=== PATIENT | male | born 2000 ===

== ENCOUNTER 2023-12-30 01:23 | Observation (INO) | payer BC, SELFPAY ==
[2023-12-30] VITALS (20 sets, daily range): BP systolic 123–164; BP diastolic 69–92; PULSE 59–100; RESP 14–18; TEMP 36.5–37.2; O2SAT 93–100; BMI 27.6
--- NOTE | 2023-12-30 02:14 | CTR_ITS ---
PROCEDURE INFORMATION: Exam: CT Abdomen And Pelvis Without Contrast Exam date and time: 12/30/2023 2:29 AM Age: 23 years old Clinical indication: Abdominal pain; Right; Prior surgery; Surgery date: 6+ months; Surgery type: Pediatric surgery on left kidney. Patient unable to specify what type of surgery. Patient HX: C/O RT flank pain. ; Additional info: R flank pain TECHNIQUE: Imaging protocol: Computed tomography of the abdomen and pelvis without contrast. Radiation optimization: All CT scans at this facility use at least one of these dose optimization techniques: automated exposure control; mA and/or kV adjustment per patient size (includes targeted exams where dose is matched to clinical indication); or iterative reconstruction. COMPARISON: No relevant prior studies available. RADIATION DOSE METRICS: Total DLP (mGy-cm): 570.69 FINDINGS: Liver: Normal. No mass. Gallbladder and bile ducts: The gallbladder is partially distended. Pancreas: Normal. No ductal dilation. Spleen: Normal. No splenomegaly. Adrenal glands: Normal. No mass. Kidneys and ureters: There is left renal atrophy and scarring. The right kidney is normal in size and contour without hydronephrosis or nephrolithiasis. Stomach and bowel: There is no evidence for small bowel obstruction. Stool scattered throughout the colon. Appendix: The appendix is somewhat dilated with surrounding periappendiceal inflammatory change and a 9 mm appendicolith near its base. Intraperitoneal space: Unremarkable. No free air. No significant fluid collection. Vasculature: Unremarkable. No abdominal aortic aneurysm. Lymph nodes: Shotty subcentimeter mesenteric lymphadenopathy is noted. Urinary bladder: Urinary bladder is relatively contracted. Reproductive: Unremarkable as visualized. Bones/joints: Unremarkable. No acute fracture. Soft tissues: Unremarkable. Other findings: Noncontrast technique limits assessment. CT/CT kidney stone [id number] IMPRESSION: Acute appendicitis. No evidence of perforation or drainable fluid collection.
[2023-12-30 02:31] LABS: Basophils % 0.4 %; Eosinophils # 0.1 10^3/uL (0.0-0.8); Eosinophils % 1.1 %; Hematocrit 41.6 % (37-53); Lymphocytes # 2.2 10^3/uL (0.8-4.8); Lymphocytes % 21.2 %; Mean Corpuscular HGB Conc 34.9 g/dL (30-55); Mean Corpuscular Hemoglobin 30.7 pg (27-33); Mean Corpuscular Volume 88.1 fl (82-101); Mean Platelet Volume 10.1 fL (7.4-10.4); Monocytes % 9.4 %; Neutrophils # 6.97 10^3/uL (1.8-7.7); Neutrophils % 67.7 %; Nucleated Red Blood Cells % 0 %; Platelet Count 239 10^3/cmm (157-399); Red Blood Count 4.72 10^6/uL (3.85-5.65); Red Cell Distribution Width 12.2 % (12.1-15.1); White Blood Count 10.29 10^3/uL (3.29-11.43)
[2023-12-30] MEDS: ketorolac 30 mg/mL INJ IVP (02:36)
[2023-12-30] MEDS: morphine 4 mg/mL SDV 1 mL IVP ×2 (02:36→13:21)
[2023-12-30] MEDS: ondansetron 2 mg/ML SDV 2 mL 4 MG IVP (02:37)
[2023-12-30 02:49] LABS: Alanine Aminotransferase 19 U/L (0-41); Albumin Level 4.8 g/dL (3.5-5.2); Alkaline Phosphatase 62 U/L (40-130); Anion Gap 15.9 (5-19); Aspartate Amino Transferase 21 U/L (0-40); Blood Urea Nitrogen 15 mg/dL (6-20); Calcium 9.3 mg/dL (8.5-10.5); Carbon Dioxide 27 mmol/L (22-29); Chloride 100 mmol/L (98-107); Creatinine Clr Calc Pharmacy 130.4857; Glucose 97 mg/dL (65-115); Lipase 22 U/L (13-60); Osmolality Calculated 289 mOsm/kg (285-295); Potassium 3.9 mmol/L (3.5-5.1); Sodium 139 mmol/L (136-145); Total Bilirubin 0.8 mg/dL (0.15-1.2); Total Protein 7.8 g/dL (6.6-8.7)
[2023-12-30 02:56] LABS: Add Urine Microscopic? NO; Bilirubin Urine Neg (Negative); Blood Urine Neg (Negative); Charge for UA Resulting for Rev; Glucose Urine UA Norm (Normal); Ketones Urine Negative (Negative); Leukocyte Esterase Urine Negative (Negative); Nitrate Urine Negative (Negative); Protein Urine Neg (Negative); Specific Gravity, Urine 1.015 (1.005-1.030); Urine Appearance Clear (CLEAR); Urine Color Yellow (Yellow); Urobilinogen Urine Neg (Negative); pH Urine 5 (5-7)
--- NOTE | 2023-12-30 03:24 | ED_ITS ---
HPI - Abdominal Pain 2 General: Chief Complaint: Abdominal Pain Stated Complaint: Left side pain Time Seen by Provider: 12/30/23 01:57 History of Present Illness: Healthy 23-year-old male with right-sided abdominal pain since around 230 yesterday afternoon. Pain is situated to the right mid abdomen. Pain is worse with movement. He has not been overly nauseated or throwing up. No fever. No diarrhea. No history of abdominal surgery Associated Symptoms: Reports nausea; Denies constipation, diarrhea, fever(s), hematochezia and vomiting Review of Systems 2 Const: Denies: fever(s) ENMT: Denies: throat pain Card: Denies: chest pain Resp: Denies: dyspnea, productive cough or non-productive cough GI: Reports: abdominal pain and nausea; Denies: vomiting, diarrhea, constipation or hematochezia Physical Exam 2 Const: COMMON NORMALS: no acute distress GENERAL APPEARANCE: cooperative; not ill appearing and not frail appearing HENMT: COMMON NORMALS: normocephalic, atraumatic and Normal external nose present HEAD & SCALP: normocephalic and atraumatic FACE & SINUS: normal facial exam and face symmetric NOSE: Normal external nose present Eye: COMMON NORMALS: Equal, round and reactive pupils present and EOMs intact bilaterally PUPIL: Yes Equal, round and reactive pupils present Neck/C-Spine: GENERAL: Yes trachea midline Chest: CHEST: Yes Symmetrical chest wall rise Resp: COMMON NORMALS: normal respiratory effort, No retractions, No use of accessory muscles and clear to auscultation bilaterally AUSCULTATION: clear to auscultation bilaterally Cardio: COMMON NORMALS: regular rate and regular rhythm RATE: regular rate RHYTHM: regular rhythm GI: COMMON NORMALS: Soft to palpation PALPATION: Yes Soft to palpation and Yes Tenderness to palpation present (GI) (Right mid abdomen) : TESTES: Yes testicular lie normal Extremity: COMMON NORMALS: no pedal edema Neuro: ROSANNA COMA SCALE: document GCS findings [place] coma scale eye opening: Spontaneous Rosanna coma scale verbal response: Orientated Rosanna coma scale motor response: Obey commands [place] coma scale total score: 15 S ENSORY EXAM: Yes extremities (intact) Psych: COMMON NORMALS: speech normal SPEECH: Yes normal speech Skin: COMMON NORMALS: no rashes or lesions noted GENERAL SKIN EXAM: no rashes or lesions noted Course 2 Vital Signs: Vital signs: Vital Signs Temperature 98.4 F 12/30/23 01:27 Pulse Rate 66 12/30/23 01:27 Respiratory Rate 14 12/30/23 02:36 Blood Pressure 128/78 12/30/23 01:27 Pulse Oximetry 99 12/30/23 01:27 Oxygen Delivery Me thod Room Air 12/30/23 01:27 MDM - Abdominal Pain Medical Decision Making Patient is afebrile. White blood cell count is 10.3, CRP is 3. Other laboratory not remarkable. CT is pending. CT shows acute appendicitis. Spoke with surgery. There is no abscess or free air. Recommendations are Zosyn, fluids, pain control. He will see a bit later this morning. Lab Data 12/30/23 02:25 12/30/23 02:25 Labs/Radiology: Radiology Impressions Abdomen/Pelvis CT 12/30/23 02:14 IMPRESSION: Acute appendicitis. No evidence of perforation or drainable fluid collection. ADDENDUM: 12/30/23 0354 THIS REPORT CONTAINS FINDINGS THAT MAY BE CRITICAL TO PATIENT CARE. The findings were verbally communicated via telephone conference with ALLA SARABIA at 3:52 AM CDT on 12/30/2023. The findings were acknowledged and understood. Laboratory Results WBC 10.29 10^3/uL (3.29-11.43) 12/30/23 02:25 RBC 4.72 10^6/uL (3.85-5.65) 12/30/23 02:25 Hgb 14.50 g/dL (11.27-16.99) 12/30/23 02:25 Hct 41.6 % (37-53) 12/30/23 02:25 MCV 88.1 fl (82-101) 12/30/23 02:25 MCH 30.7 pg (27-33) 12/30/23 02:25 MCHC 34.9 g/dL (30-55) 12/30/23 02:25 RDW 12.2 % (12.1-15.1) 12/30/23 02:25 Plt Count 239 10^3/cmm (157-399) 12/30/23 02:25 MPV 10.1 fL (7.4-10.4) 12/30/23 02:25 Neut % (Auto) 67.7 % 12/30/23 02:25 Lymph % (Auto) 21.2 % 12/30/23 02:25 D[place]key % (Auto) 9.4 % 12/30/23 02:25 Eos % (Auto) 1.1 % 12/30/23 02:25 Baso % (Auto) 0.4 % 12/30/23 02:25 Neut # (Auto) 6.97 10^3/uL (1.8-7.7) 12/30/23 02:25 Lymph # (Auto) 2.2 10^3/uL (0.8-4.8) 12/30/23 02:25 [place]key # (Auto) 1.0 10^3/uL (0.2-0.9) H 12/30/23 02:25 Eos # (Auto) 0.1 10^3/uL (0.0-0.8) 12/30/23 02:25 Baso # (Auto) 0.0 10^3/uL (0.0-0.1) 12/30/23 02:25 Nucleated RBC % (auto) 0 % 12/30/23 02:25 Nucleated RBCs # 0.0 /100WBC 12/30/23 02:25 Sodium 139 mmol/L (136-145) 12/30/23 02:25 Potassium 3.9 mmol/L (3.5-5.1) 12/30/23 02:25 Chloride 100 mmol/L (98-107) 12/30/23 02:25 Carbon Dioxide 27 mmol/L (22-29) 12/30/23 02:25 Anion Gap 15.9 (5-19) 12/30/23 02:25 BUN 15 mg/dL (6-20) 12/30/23 02:25 Creatinine 1.1 mg/dL (0.7-1.2) 12/30/23 02:25 GFR Calculation 83.0 mL/min (90-130) L 12/30/23 02:25 Glucose 97 mg/dL (65-115) 12/30/23 02:25 Calculated Osmolality 289 mOsm/kg (285-295) 12/30/23 02:25 Calcium 9.3 mg/dL (8.5-10.5) 12/30/23 02:25 Total Bilirubin 0.8 mg/dL (0.15-1.2) 12/30/23 02:25 AST 21 U/L (0-40) 12/30/23 02:25 ALT 19 U/L (0-41) 12/30/23 02:25 Alkaline Phosphatase 62 U/L (40-130) 12/30/23 02:25 C-Reactive Protein 3.0 mg/L (0.0-4.9) 12/30/23 02:25 Total Protein 7.8 g/dL (6.6-8.7) 12/30/23 02:25 Albumin 4.8 g/dL (3.5-5.2) 12/30/23 02:25 Globulin 3.0 g/dL (1.3-4.6) 12/30/23 02:25 Lipase 22 U/L (13-60) 12/30/23 02:25 Urine Color Yellow (Yellow) 12/30/23 01:40 Urine Appearance Clear (CLEAR) 12/30/23 01:40 Urine pH 5 (5-7) 12/30/23 01:40 Ur Specific [place] 1.015 (1.005-1.030) 12/30/23 01:40 Urine Protein Neg (Negative) 12/30/23 01:40 Urine Glucose (UA) Norm (Normal) 12/30/23 01:40 Urine Ketones Negative (Negative) 12/30/23 01:40 Urine Blood Neg (Negative) 12/30/23 01:40 Urine Nitrate Negative (Negative) 12/30/23 01:40 Urine Bilirubin Neg (Negative) 12/30/23 01:40 Urine Urobilinogen Neg mg/dL (Negative) 12/30/23 01:40 Ur Leukocyte Esterase Negative (Negative) 12/30/23 01:40 All radiology interpretation(s) finalized by discharge Discharge Plan Discharge Patient Disposition: Placed in Observation Admit Provider: Abilio James Clinical Impression: Acute appendicitis Condition: Stable Coding Level of Care Code ED [employer] for [facility] [employer]
[2023-12-30] MEDS: piperacillin-tazobactam 3.375 GM in sodium chloride 0.9% (plus) 50 ML IV ×2 (04:13→12:38)
[2023-12-30] MEDS: lactated ringers 1,000 ML 100 ML IV ×2 (04:46→13:23)
[2023-12-30] MEDS: polymyxin-trimethoprim Op Soln 10 mL Btl 1 DROP EYE-RIGHT ×2 (09:25→12:39)
--- NOTE | 2023-12-30 15:51 | P.HP_ITS ---
Providers/Chief Complaint 2 Admitting Physician: Abilio James DO Primary Care Provider: Giovanni Chow MD Chief Complaint: Left side pain History of Present Illness Zachary Li is a 23 year old male who presented to the hospital with 1 day history of right lower quadrant abdominal pain. The pain is sharp and constant and does not radiate. Palpation makes pain worse. Nothing makes pain better. He denies any nausea, emesis, diarrhea, constipation, hematochezia and/or melena. He does report feeling chills. He reports some history of kidney surgery as a young child but is unsure of the details. CT the abdomen pelvis shows acute appendicitis. Review of Systems 2 General: Reports: 10 or more systems reviewed and unremarkable except in HPI and below Medications/Allergies Home Medications Medication Instructions Recorded Confirmed Last Taken Type No Known Home Medications 12/30/23 12/30/23 Unknown History Allergies Allergy/AdvReac Type Severity Reaction Status Date / Time No Known Allergies Allergy Verified 12/30/23 01:32 Vitals/I&O/Wt Last Vital Signs Temp 99 F 12/30/23 15:09 Pulse 75 12/30/23 15:09 Resp 18 12/30/23 15:09 BP 152/92 12/30/23 15:09 Pulse Ox 98 12/30/23 15:09 O2 Del Method Room Air 12/30/23 15:09 12/30/23 12/30/23 12/30/23 06:59 14:59 22:59 Intake Total 71.667 / 71.667 840 / 840 Balance 71.667 / 71.667 840 / 840 Weight last 48 hrs Weight 206 lb 8 oz Weight 215 lb Physical Exam 2 Narrative: General : Patient is well developed , no acute distress, oriented x3 Head : Normal cephalic, a-traumatic. Ears : Pinnae and external canal are normal. Hearing is normal. Eyes : PERRLA, Sclera and injection are normal. No conjunctival discharge. Nose : Mucous membranes are without erythema. Throat : buccal mucosa is normal, gums are without significant recession or hypertrophy. Lungs : Equal chest rise bilaterally, no use of accessory muscles, trachea is midline. Cor : Rate and rhythm are normal. Abdomen : Soft, ND, right lower quadrant tenderness, negative Rovsing's, no g/r/m Extremities : No edema, no cyanosis or clubbing, dorsalis pedis pulses are present bilaterally, non-tender to palpation of calves. Upper extremities are normal bilaterally. Back : non-tender to palpation, no CVA tenderness. Neuro : CN II - XII intact, Upper and lower extremities have equal and full strength Data 12/30/23 02:25 12/30/23 02:25 A&P Assessment and plan (1) Acute appendicitis: Plan Laparoscopic Appendectomy The risks and benefits of the procedure, including but not limited to, bleeding, infection, scar, numbness, pain, damage to surrounding structures, conversion to an open procedure, were explained to the patient. He is understanding of the risks and wishes to proceed. Attestations 2 Medical Necessity Statement*: Depending on the severity of the appendicitis, he may be discharged after surgery or require overnight stay Coding Level of Care Code 93513 Diagnoses Acute appendicitis K35.80
--- NOTE | 2023-12-30 16:12 | P.ANESASSM_ITS ---
Pre-Anesthetic Assessment Height/Weight: Height 1.88 m Weight 93.667 kg Temp Pulse Resp BP Pulse Ox O2 Del Method 99 F 75 18 152/92 98 Room Air 12/30/23 15:09 12/30/23 15:09 12/30/23 15:09 12/30/23 15:09 12/30/23 15:09 12/30/23 15:09 Operation Date: 12/30/23 16:00 Proposed Procedures p Laparoscopic Appendectomy(Not Applicable) - Abilio James DO Familial anesthetic complications: none Was Beta Matthew taken within 24 hours: N/A Was Clonidine taken within 24 hours: N/A Last intake: Intake Last Liquid Date 12/30/23 Last Liquid Time 00:00 Last Solid Date 12/29/23 Last Solid Time 15:00 Social No alcohol and No tobacco Exam alert, oriented x 3, clear to auscultation bilaterally and regular rate & rhythm Airway Submandibular: within normal limits Cervical ROM: within normal limits Mallampati: Class II Dentition: full History/ROS No significant history except as noted GI Acute appe Anesthetic Plan ASA status: 1E Anesthesia: General (Mod RSI) Medications/Allergies Home Medications Medication Instructions Recorded Confirmed Last Taken Type No Known Home Medications 12/30/23 12/30/23 Unknown History Allergies Allergy/AdvReac Type Severity Reaction Status Date / Time No Known Allergies Allergy Verified 12/30/23 01:32 Current Medications Generic Name Dose Route Start Last Admin Trade Name Freq PRN Reason Stop Dose Admin Lactated Ringer's 1,000 mls @ 100 mls/hr 12/30/23 04:30 12/30/23 13:23 Lactated Ringers IV 100 mls/hr .Q10H JOVANNI Administration Piperacillin Sod/Tazobactam 50 mls @ 12.5 mls/hr 12/30/23 12:00 12/30/23 12:38 Sod 3.375 gm/ Sodium Chloride IV 12.5 mls/hr Q8H JOVANNI Administration Morphine Sulfate 4 mg 12/30/23 04:30 12/30/23 13:21 Morphine 4 Mg/Ml Sdv 1 Ml IVP 4 mg Q2H PRN Administration SEVERE PAIN Polymyxin/Trimethoprim Sulfate 1 drop 12/30/23 09:00 12/30/23 12:39 Polymyxin-Trimethoprim Op Soln 10 Ml Btl EYE-RIGHT 1 drop QID JOVANNI Administration Data Anesthesia 12/30/23 02:25 12/30/23 02:25 Short CBC 12/30/23 Range/Units 02:25 WBC 10.29 (3.29-11.43) 10^3/uL Hgb 14.50 (11.27-16.99) g/dL Hct 41.6 (37-53) % MCV 88.1 (82-101) fl Plt Count 239 (157-399) 10^3/cmm Neut % (Auto) 67.7 % Neut # (Auto) 6.97 (1.8-7.7) 10^3/uL BMP 12/30/23 02:25 Sodium 139 Potassium 3.9 Chloride 100 Carbon Dioxide 27 BUN 15 Creatinine 1.1 Glucose 97 Calcium 9.3 Liver Function 12/30/23 Range/Units 02:25 Total Bilirubin 0.8 (0.15-1.2) mg/dL AST 21 (0-40) U/L ALT 19 (0-41) U/L Alkaline Phosphatase 62 (40-130) U/L Albumin 4.8 (3.5-5.2) g/dL Urine 12/30/23 Range/Units 01:40 Urine Color Yellow (Yellow) Urine Appearance Clear (CLEAR) Urine pH 5 (5-7) Ur Specific [place] 1.015 (1.005-1.030) Urine Protein Neg (Negative) Urine Glucose (UA) Norm (Normal) Urine Ketones Negative (Negative) Urine Nitrate Negative (Negative) Urine Bilirubin Neg (Negative) Ur Leukocyte Esterase Negative (Negative) Coags 12/30/23 02:25 C-Reactive Protein 3.0 Cardiac Studies: 2 No Data to Display
[2023-12-30] MEDS: lidocaine-epi 2% PF 1:200,000 20 mL SDV 5 ML XX (16:26)
--- NOTE | 2023-12-30 16:43 | P.OP_ITS ---
Operative Report Date of procedure: December 30, 2023 Pre-op diagnosis: Acute appendicitis Post-op diagnosis: same Procedure done: Laparoscopic appendectomy Specimens removed/disposition: appendix Surgeon: Abilio James DO Anesthesia: General and Local Complications: None apparent Brief History: This very pleasant 23-year-old gentleman who presented to the hospital with abdominal pain. He was diagnosed with acute appendicitis. Laparoscopic appendectomy was indicated. The risk and benefits were explained and documented. Procedure: Patient was wheeled into the operative room and placed on the OR table in a supine position. Abdomen was inspected prepped and draped in usual sterile fashion. Time-out was performed and all present were in agreement. A 15 blade scalp was used to make a stab incision in the left upper quadrant and intra- abdominal insufflation was achieved using a Veress needle. After localizing the tissue incisions were made and a 12 millimeter trocar was placed into the umbilicus as well as a 5mm in the right lower quadrant and a 5 mm in the left lower quadrant . The appendix was identified and was mildly inflamed. I used the Voyant to ligate the mesoappendix at the base. I then used 2 PDS endo-loops to snare the base of the appendix. I then used the Voyant to ligate the appendix distally. The appendix was removed from the abdomen using an Endo- Catch bag through the umbilical incision. I examined the abdomen and no further pathology was identified. Hemostasis was noted. I then closed the u mbilical site with a Ihsan-Mary and 0 Vicryl suture in a figure of 8 fashion. All ports removed. Skin was washed and dried. Incisions were closed with 4 O Vicryl in a subcuticular interrupted fashion. Skin glue was applied. Patient tolerated the procedure well.
--- NOTE | 2023-12-30 16:45 | P.DS_ITS ---
Discharge Providers Date of Admission: 12/30/23 04:08 Date of Discharge: December 30, 2023 Attending Provider at Admission: Abilio James DO Attending Provider at Discharge: Abilio James DO Primary Care Provider: Giovanni Chow MD Diagnoses at Discharge Discharge Diagnosis (1) Acute appendicitis: Status: Acute Reason for Visit Reason for Visit: Left side pain Hospital Course Hospital Course This very pleasant 73-year-old gentleman who came into the hospital with acute appendicitis. He underwent laparoscopic appendectomy and was discharged home in good condition. Physical Exam Narrative: General : Patient is well developed , no acute distress, oriented x3 Head : Normal cephalic, a-traumatic. Ears : Pinnae and external canal are normal. Hearing is normal. Eyes : PERRLA, Sclera and injection are normal. No conjunctival discharge. Nose : Mucous membranes are without erythema. Throat : buccal mucosa is normal, gums are without significant recession or hypertrophy. Lungs : Equal chest rise bilaterally, no use of accessory muscles, trachea is midline. Cor : Rate and rhythm are normal. Abdomen : Soft, ND, appropriately tender, no g/r/m Extremities : No edema, no cyanosis or clubbing, dorsalis pedis pulses are present bilaterally, non-tender to palpation of calves. Upper extremities are normal bilaterally. Back : non-tender to palpation, no CVA tenderness. Neuro : CN II - XII intact, Upper and lower extremities have equal and full strength Discharge Data Studies Completed and Pending Completed Studies During Hospitalization Category Date Time Status CT kidney stone [id number] Stat Cat Scan 12/30/23 02:14 Completed Pending at discharge Category Date Time Status Pathology: Surgical [PTH] Routine Pth 12/30/23 16:32 Ordered Radiology Impressions Abdomen/Pelvis CT 12/30/23 02:14 IMPRESSION: Acute appendicitis. No evidence of perforation or drainable fluid collection. ADDENDUM: 12/30/23 0354 THIS REPORT CONTAINS FINDINGS THAT MAY BE CRITICAL TO PATIENT CARE. The findings were verbally communicated via telephone conference with ALLA SARABIA at 3:52 AM CDT on 12/30/2023. The findings were acknowledged and understood. Laboratory Results WBC 10.29 10^3/uL (3.29-11.43) 12/30/23 02:25 RBC 4.72 10^6/uL (3.85-5.65) 12/30/23 02:25 Hgb 14.50 g/dL (11.27-16.99) 12/30/23 02:25 Hct 41.6 % (37-53) 12/30/23 02:25 MCV 88.1 fl (82-101) 12/30/23 02:25 MCH 30.7 pg (27-33) 12/30/23 02:25 MCHC 34.9 g/dL (30-55) 12/30/23 02:25 RDW 12.2 % (12.1-15.1) 12/30/23 02:25 Plt Count 239 10^3/cmm (157-399) 12/30/23 02:25 MPV 10.1 fL (7.4-10.4) 12/30/23 02:25 Neut % (Auto) 67.7 % 12/30/23 02:25 Lymph % (Auto) 21.2 % 12/30/23 02:25 [place] % (Auto) 9.4 % 12/30/23 02:25 Eos % (Auto) 1.1 % 12/30/23 02:25 Baso % (Auto) 0.4 % 12/30/23 02:25 Neut # (Auto) 6.97 10^3/uL (1.8-7.7) 12/30/23 02:25 Lymph # (Auto) 2.2 10^3/uL (0.8-4.8) 12/30/23 02:25 [place] # (Auto) 1.0 10^3/uL (0.2-0.9) H 12/30/23 02:25 Eos # (Auto) 0.1 10^3/uL (0.0-0.8) 12/30/23 02:25 Baso # (Auto) 0.0 10^3/uL (0.0-0.1) 12/30/23 02:25 Nucleated RBC % (auto) 0 % 12/30/23 02:25 Nucleated RBCs # 0.0 /100WBC 12/30/23 02:25 Sodium 139 mmol/L (136-145) 12/30/23 02:25 Potassium 3.9 mmol/L (3.5-5.1) 12/30/23 02:25 Chloride 100 mmol/L (98-107) 12/30/23 02:25 Carbon Dioxide 27 mmol/L (22-29) 12/30/23 02:25 Anion Gap 15.9 (5-19) 12/30/23 02:25 BUN 15 mg/dL (6-20) 12/30/23 02:25 Creatinine 1.1 mg/dL (0.7-1.2) 12/30/23 02:25 GFR Calculation 83.0 mL/min (90-130) L 12/30/23 02:25 Glucose 97 mg/dL (65-115) 12/30/23 02:25 Calculated Osmolality 289 mOsm/kg (285-295) 12/30/23 02:25 Calcium 9.3 mg/dL (8.5-10.5) 12/30/23 02:25 Total Bilirubin 0.8 mg/dL (0.15-1.2) 12/30/23 02:25 AST 21 U/L (0-40) 12/30/23 02:25 ALT 19 U/L (0-41) 12/30/23 02:25 Alkaline Phosphatase 62 U/L (40-130) 12/30/23 02:25 C-Reactive Protein 3.0 mg/L (0.0-4.9) 12/30/23 02:25 Total Protein 7.8 g/dL (6.6-8.7) 12/30/23 02:25 Albumin 4.8 g/dL (3.5-5.2) 12/30/23 02:25 Globulin 3.0 g/dL (1.3-4.6) 12/30/23 02:25 Lipase 22 U/L (13-60) 12/30/23 02:25 Urine Color Yellow (Yellow) 12/30/23 01:40 Urine Appearance Clear (CLEAR) 12/30/23 01:40 Urine pH 5 (5-7) 12/30/23 01:40 Ur Specific [place] 1.015 (1.005-1.030) 12/30/23 01:40 Urine Protein Neg (Negative) 12/30/23 01:40 Urine Glucose (UA) Norm (Normal) 12/30/23 01:40 Urine Ketones Negative (Negative) 12/30/23 01:40 Urine Blood Neg (Negative) 12/30/23 01:40 Urine Nitrate Negative (Negative) 12/30/23 01:40 Urine Bilirubin Neg (Negative) 12/30/23 01:40 Urine Urobilinogen Neg mg/dL (Negative) 12/30/23 01:40 Ur Leukocyte Esterase Negative (Negative) 12/30/23 01:40 Procedures Performed Laparoscopic appendectomy Vitals Last Vital Signs Temp 99 F 12/30/23 15:09 Pulse 75 12/30/23 15:09 Resp 18 12/30/23 15:09 BP 152/92 12/30/23 15:09 Pulse Ox 98 12/30/23 15:09 O2 Del Method Room Air 12/30/23 15:09 Discharge Plan Discharge Patient Disposition: Home Condition: Stable Prescriptions: New hydrocodone-acetaminophen 7.5-325 mg tablet 1 tab PO Q6H PRN (Reason: pain) Qty: 20 0RF amoxicillin-pot clavulanate 875-125 mg tablet 1 tab PO BID Qty: 14 0RF docusate sodium [Colace] 100 mg capsule 100 mg PO BID Qty: 10 0RF Discharge Orders: Discharge Order (Routine); Ordered 12/30/23 Ordered By: Abilio James Referrals: Abilio James DO [Physician] - 2 weeks Giovanni Chow MD [Primary Care Provider] - 4-7 days Discharge Diet: Advance as tolerated Discharge Activity: Resume usual activity Patient Instructions: Opioid Safety, Post Anesthesia Care Activity Restrictions/Additional Instructions: Do not soak incisions underwater for 2 weeks. Shower regularly Discharge Attestations Time Spent in Discharge Care*: less than 30 min Quality Metrics Clinical Quality Measures [ No reported AMI, CVA or VTE this stay] Coding Level of Care Code Acute Code for [facility] Fwd Diagnoses Acute appendicitis K35.80
--- NOTE | 2023-12-30 17:23 | ANE.PACU2 ---
Inpatient post-anesthesia follow up: Airway intact: Yes Vital signs: Temperature 99 F Pulse Rate 75 Respiratory Rate 18 Blood Pressure 152/92 Pulse Oximetry 98 Oxygen Delivery Me thod Room Air Oxygen Flow Rate Fraction of Inspir ed Oxygen Hydration adequate: Yes Nausea and vomiting: No Pain level: 2 Mental status: Baseline
== END 2023-12-30 19:25 | disposition home or self-care (01) ==
LOC: ER 01:57 → MEDSURG 04:09
PROVIDERS: Admitting Provider Surgery; Emergency Provider Emergency Medicine; Family Provider Family Medicine; PCP Family Medicine; Visit Provider Surgery
PROC: 0DTJ4ZZ Resection of Appendix, Percutaneous Endoscopic Approach (ICD-10-PCS; CPT 44970; principal; 2023-12-30 16:00)
DX: K35.80 Unspecified acute appendicitis (principal)
CPT/HCPCS: 44970; 74176; 80053; 81003; 83690; 85025; 86140; 88304; 96365; 96375; 99285; G0378; J1100; J1885; J2250; J2270; J2405; J2543; J2704; J3010; J3490; J7120